=== PATIENT | male | born 1960 | race Caucasian/White ===

== ENCOUNTER 2021-01-25 08:32 | Outpatient (REF) | payer MEDICARE, SELFPAY ==
--- NOTE | ~2021-01-25 | XR_ITS ---
EXAMINATION: KNEE X-RAY CLINICAL INFORMATION: Pain COMPARISON: Previous x-ray most recent November 2018 TECHNIQUE: Standing AP view of both knees and lateral and sunrise view of the left knee FINDINGS: Left knee: Bone alignment is normal. No fracture or dislocation is seen. There is arthritis at the femoral tibial joints with joint space narrowing and small osteophytes. There is no significant joint effusion. Standing AP view of the right knee demonstrates arthritis at the femoral tibial joints. XR/XR knee standing BI IMPRESSION: Bilateral knee arthritis.
--- NOTE | ~2021-01-25 | XR_ITS ---
EXAMINATION: KNEE X-RAY CLINICAL INFORMATION: Pain COMPARISON: Previous x-ray most recent November 2018 TECHNIQUE: Standing AP view of both knees and lateral and sunrise view of the left knee FINDINGS: Left knee: Bone alignment is normal. No fracture or dislocation is seen. There is arthritis at the femoral tibial joints with joint space narrowing and small osteophytes. There is no significant joint effusion. Standing AP view of the right knee demonstrates arthritis at the femoral tibial joints. XR/XR knee LT 2V IMPRESSION: Bilateral knee arthritis.
== END 2021-01-25 08:33 | disposition home or self-care (01) ==
LOC: HO.HOSX 08:32
PROVIDERS: Visit Provider Orthopaedic Surgery
DX: M25.562 Pain in left knee (principal); M25.561 Pain in right knee; M17.0 Bilateral primary osteoarthritis of knee
CPT/HCPCS: 73560; 73565

== ENCOUNTER → 2021-04-11 14:02 | Outpatient (BNVA) | payer BC, SELFPAY | PROVIDERS: PCP Internal Medicine; Visit Provider Internal Medicine Cardiovascular Disease | DX: Z01.810 Encounter for preprocedural cardiovascular examination (principal); I25.10 Atherosclerotic heart disease of native coronary artery without angina pectoris | CPT/HCPCS: 93005 ==

== ENCOUNTER → 2021-05-19 08:30 | Outpatient (REF) | payer BC, SELFPAY ==
--- NOTE | 2021-05-19 08:35 | CA_ITS ---
Transthoracic Echocardiogram Patient (Last, First, Middle): Sean Holder, Gender: Male Date of : 1960 Age: 60 Procedure Date: 05/19/2021 Procedure Type: Transthoracic Echocardiogram Location: OP Height: 187.96 cm Weight: 95.26 kg BSA: 2.22 m2 Heart Rate: bpm BP: 118 / 79 mmHg Classification Officer: IVAN Referring MD: Chris Monahan MD Symptoms: I42.9 - Cardiomyopathy, unspecified Conclusions: - The left ventricular systolic function is low normal. The visually estimated ejection fraction is between 50-55%. 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 - There is a small thrombus in the left ventricle. Findings Procedure Information Contrast agent, definity, is being given per protocol without apparent complications. Left Ventricle Normal left ventricular cavity size. There is normal left ventricular wall thickness. The left ventricular systolic function is low normal. The visually estimated ejection fraction is between 50-55%. There is evidence of regional wall motion abnormalities. Abnormal diastolic function is noted. Spectral Doppler is indicative of an impaired relaxation filling pattern. E/E prime ratio is <8, consistent with normal filling pressures. There is a small thrombus in the left ventricle. 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 Right Ventricle Normal right ventricular cavity size and systolic function. Atria The left atrium is normal in size. Aortic Valve Normal aortic valve structure and function. There is no aortic valve stenosis. There is no aortic valve regurgitation. Mitral Valve Normal mitral valve structure and function. There is no mitral valve regurgitation. There is no mitral valve stenosis. Pulmonic Valve Normal pulmonic valve structure and function. There is no pulmonic valve regurgitation. Tricuspid Valve Normal tricuspid valve structure. There is trace tricuspid valve regurgitation. Normal right atrial pressure. Mild pulmonary hypertension is present. Great Vessels There is mild dilatation of the ascending aorta. The visualized portions of the pulmonary artery and branches are normal. Venous The inferior vena cava is normal in size and collapses greater than 50% with inspiration. Pericardium/Pleural There is no evidence of pericardial effusion. Prior Study Comparison No prior study available for comparison. Measurements 2D Linear Measurements IVSd: 1.07 0.6-0.9/0.6-1.0 cm LVIDd: 5.25 3.9-5.3/4.2-5.9 cm LVIDd Index: 2.36 2.4-3.2/2.2-3.1 cm/m2 LVIDs: 3.42 2.0-3.6 cm LVPWd: 1.07 0.7-1.1 cm Ao Root: 3.50 2.1-3.5 cm LA Diam: 3.30 2.7-3.8/3.0-4.0 cm LAIDs Index: 1.49 1.5-2.3 cm/m2 LV Mass: 269.24 67-162/88-224 g LV Mass Index: 121.28 43-95/49-115 g/m2 LVOT Diam: 2.10 3.0+(-)1.3 cm 2D Systolic Function EF 4C: 67.90 >55% EF 2C: 26.10 >55% EF BiP: 55.40 >55% Mitral Valve MV Pk E: 0.41 MV PK A: 0.64 MV Decel Time: 225.00 E/A: 0.60 E'Lateral: 6.85 E'Medial: 4.90 E/E' Med: 8.40 E/E' Lat: 6.00 PHT: 66.00 MVA PHT: 3.33 Decel [place]: 1.83 Aortic Valve AoV Pk Luis: 1.22 AoV Pk Grad: 6.00 LVOT LVOT Pk Luis: 0.79 LVOT Mn Luis: 0.54 LVOT VTI: 0.17 LVOT Pk Grad: 2.00 LVOT Mn Grad: 1.00 LVOT Diam: 2.10 LVOT Area: 3.46 Diastolic Function MV Pk E: 0.41 MV Pk A: 0.64 E/A: 0.60 E'Medial: 4.90 E/E' Med: 8.40 E' Laterial: 6.85 E/E' Lat: 6.00 Right Ventricle TAPSE (mm): 2.07 Tricuspid Valve TR Pk Luis: 3.28 TR Pk Grad: 43.00 RA Press: 3.00 RVSP: 46.00 Great Vessels Aorta Ao Root-2D: 3.50 2.0-3.7 cm Ao Asc: 3.40 2.1-3.4 cm Updated in Other Vendor System with Status of Final Chris Monahan MD electronically signed on 05/21/2021 10:20:36 PM with status of Final
--- NOTE | 2021-05-19 09:30 | CA_ITS ---
Acquisition Time: 2021-05-19 09:50:07 Total Exercise Time: 00:08:00 Test Indications: Abnormal ECG Medications: ASA ATORVASTATIN LISINOPRIL Protocol: SETH Max HR: 141 BPM 88% of Pred: 160 BPM Max BP: 164/080 mmHG Max Work Load: 10.1 METS Exercise stress test with exercise 8 min of Seth protocol, with mild shortness of breath, no chest discomfort, with isolated PAC, with normotensive response to exercise, without EKG changes meeting criteria for ischemia. Test reviewed with Dr Monahan. Referred By: Chris Monahan Overread By: MINH VALLEJO
== END ==
LOC: HO.CARD 08:30
PROVIDERS: Visit Provider Internal Medicine Cardiovascular Disease
DX: I25.10 Atherosclerotic heart disease of native coronary artery without angina pectoris (principal); I42.9 Cardiomyopathy, unspecified
CPT/HCPCS: 93017; 93306; Q9957

== ENCOUNTER → 2021-06-22 13:35 | Outpatient (BNVA) | payer BC, SELFPAY | PROVIDERS: PCP Internal Medicine; Referring Provider Internal Medicine; Visit Provider Nurse Practitioner Family ==

== ENCOUNTER → 2021-09-28 14:55 | Outpatient (REF) | payer BC, SELFPAY ==
--- NOTE | 2021-09-28 14:58 | CA_ITS ---
Transthoracic Echocardiogram Patient (Last, First, Middle): Sean Holder, Gender: Male Date of : 1960 Age: 61 Procedure Date: 09/28/2021 Procedure Type: Transthoracic Echocardiogram Location: OP Height: 187.96 cm Weight: 88.45 kg BSA: 2.15 m2 Heart Rate: bpm BP: 120 / 80 mmHg Cro: GENE Dove MD: Chey Jones ENGINEERING TECHNOLOGIST-C Loader Engineer: Efrain Lee MD Symptoms: I51.3 - Intracardiac thrombosis, not elsewhere classified Study Quality: Fair/Contrast ECG Rhythm: Sinus Conclusions: - Apical thrombus present with overall normal LV systolic function Findings Left Ventricle The visually estimated ejection fraction is between 60-65%. There is a moderate immobile apical thrombus in the left ventricle. Wall Motion Rest Echo Findings The basal inferior segment is hypokinetic. The apex segment is dyskinetic. All other scored wall segments showed normal motion. Measurements 2D Systolic Function EF 4C: 65.40 >55% EF 2C: 64.40 >55% EF BiP: 64.20 >55% Updated in Other Vendor System with Status of Final Efrain Lee MD electronically signed on 09/29/2021 4:37:45 PM with status of Final
== END ==
LOC: HO.CARD 14:55
PROVIDERS: PCP Internal Medicine; Visit Provider Nurse Practitioner Family
DX: I25.10 Atherosclerotic heart disease of native coronary artery without angina pectoris (principal)
CPT/HCPCS: 93308; Q9957

== ENCOUNTER → 2021-10-03 13:30 | Outpatient (BNVA) | payer BC, SELFPAY | PROVIDERS: PCP Internal Medicine; Referring Provider Internal Medicine; Visit Provider Internal Medicine Cardiovascular Disease ==

== ENCOUNTER → 2022-01-25 12:43 | Outpatient (BNVA) | payer BC, SELFPAY | PROVIDERS: PCP Internal Medicine; Referring Provider Internal Medicine; Visit Provider Internal Medicine Cardiovascular Disease | DX: I46.9 Cardiac arrest, cause unspecified (principal); I65.21 Occlusion and stenosis of right carotid artery; I66.12 Occlusion and stenosis of left anterior cerebral artery; I51.3 Intracardiac thrombosis, not elsewhere classified; I10 Essential (primary) hypertension; I25.10 Atherosclerotic heart disease of native coronary artery without angina pectoris; E78.00 Pure hypercholesterolemia, unspecified; M17.0 Bilateral primary osteoarthritis of knee; F17.210 Nicotine dependence, cigarettes, uncomplicated; Z98.890 Other specified postprocedural states; Z95.5 Presence of coronary angioplasty implant and graft; Z79.01 Long term (current) use of anticoagulants | CPT/HCPCS: 93005 ==

== ENCOUNTER → 2022-06-27 09:41 | Outpatient (REF) | payer BC, SELFPAY ==
--- NOTE | 2022-06-27 09:44 | CA_ITS ---
Transthoracic Echocardiogram Patient (Last, First, Middle): Sean Holder, Gender: Male Date of : 1960 Age: 62 Procedure Date: 06/27/2022 Procedure Type: Transthoracic Echocardiogram Location: OP Height: 187.96 cm Weight: 88.45 kg BSA: 2.15 m2 Heart Rate: bpm BP: 117 / 56 mmHg Education Nurse: EDER Referring MD: Chey Jones LABORER ELECTROPLATING-Char Drum Maker: Efrain Lee MD Symptoms: I51.3 - Intracardiac thrombosis, not elsewhere classified Study Quality: Fair ECG Rhythm: Sinus Conclusions: - Low normal LV systolic function with apical aneurysm with presence of thrombus Findings Left Ventricle Normal left ventricular cavity size. There is normal left ventricular wall thickness. The left ventricular systolic function is low normal. The visually estimated ejection fraction is between 50-55%. Spectral Doppler is indicative of an impaired relaxation filling pattern. There is a small immobile apical thrombus in the left ventricle. The thrombus appears irregular in shape. 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 All other scored wall segments showed normal motion. Prior Study Comparison No significant change compared to prior study dated: 09/28/2021. Measurements 2D Linear Measurements IVSd: 1.33 0.6-0.9/0.6-1.0 cm LVIDd: 3.97 3.9-5.3/4.2-5.9 cm LVIDd Index: 1.85 2.4-3.2/2.2-3.1 cm/m2 LVIDs: 2.95 2.0-3.6 cm LVPWd: 1.29 0.7-1.1 cm LV Mass: 232.57 67-162/88-224 g LV Mass Index: 108.17 43-95/49-115 g/m2 Mitral Valve MV Pk E: 0.45 MV PK A: 0.64 MV Decel Time: 125.00 E/A: 0.70 E'Lateral: 5.55 E'Medial: 4.24 E/E' Med: 10.50 E/E' Lat: 8.00 PHT: 37.00 MVA PHT: 5.95 Decel Orange: 3.56 Diastolic Function MV Pk E: 0.45 MV Pk A: 0.64 E/A: 0.70 E'Medial: 4.24 E/E' Med: 10.50 E' Laterial: 5.55 E/E' Lat: 8.00 Updated in Other Vendor System with Status of Final Efrain Lee MD electronically signed on 06/27/2022 1:34:53 PM with status of Final
== END ==
LOC: HO.CARD 09:41
PROVIDERS: PCP Internal Medicine; Visit Provider Nurse Practitioner Family
DX: I51.3 Intracardiac thrombosis, not elsewhere classified (principal); I25.10 Atherosclerotic heart disease of native coronary artery without angina pectoris
CPT/HCPCS: 93308; Q9957

== ENCOUNTER → 2022-09-27 11:03 | Outpatient (BNVA) | payer BC, SELFPAY | PROVIDERS: PCP Internal Medicine; Visit Provider Internal Medicine Cardiovascular Disease | DX: I51.3 Intracardiac thrombosis, not elsewhere classified (principal); I25.10 Atherosclerotic heart disease of native coronary artery without angina pectoris | CPT/HCPCS: 93005 ==

== ENCOUNTER → 2023-04-04 11:08 | Outpatient (BNVA) | payer BC, SELFPAY | PROVIDERS: Visit Provider Internal Medicine Cardiovascular Disease ==

== ENCOUNTER 2024-01-16 12:43 | Outpatient (AMB) | payer BC, SELFPAY ==
[2024-01-16 12:46] VITALS: BP 140/70; PULSE 76; BMI 26.3
--- NOTE | 2024-01-16 12:46 | A.OFFVIS_ITS ---
Intake Vital Signs 01/16/24 12:46 Height 6 ft 2 in Weight 204 lb 9.423 oz BMI 26.3 BP 140/70 H Blood Pressure Location Lt brachial Position Sitting Pulse 76 Intake Visit Reasons: 6+ mth fu 9pt requested) Intake Note: pt its here f/up/ pt state that he its doing fine. Wedding Cake Designer Required: No Accompanied by: Self / Same As Patient Allergies No Known Allergies Allergy (Verified 04/04/23 11:12) Medication List - Last Reconciled 01/16/24 by Chris Monahan MD aspirin (Adult Aspirin Regimen) 81 mg PO DAILY atorvastatin 40 mg PO DAILY lisinopril 10 mg PO DAILY warfarin 5 mg PO DAILY HPI HPI Comments History of Present Illness Details Pleasant 63-year-old gentleman here for f/u. He was previously seeing Dr. Corbett. It appears he had cardiac arrest and underwent cardiac catheterization in 2007. He was noticed to have occluded RCA as well as severe left anterior descending artery stenosis which was treated with bare metal stent. His ejection fraction was 25% but as per reports from [facility] (he was also seeing Dr Hodgson) his ejection fraction improved. He has not seen any physician for many years. He has bilateral knee arthritis with left more than right knee pain. He is planning to undergo left knee arthroplasty. He is active smoker. He underwent echocardiography which showed dyskinetic apex with LV thrombus. He was started on Eliquis but could not afford it and eventually was changed to Coumadin. He had repeat echocardiography in September 2021 which is showing normal ejection fraction but continues to show apical thrombus. He had repeat echocardiogram after that and still apical thrombus was present. He underwent left hand Dupuytren contracture surgery. He is back for follow-up. He has no symptoms other than fatigue. He continues to smoke half pack per day. He is denying chest discomfort shortness of breath. He is saying he did not have any symptoms before he had cardiac arrest in 2007. I have reviewed his angiogram from 2007. He had STONE DRESSER of the right coronary artery and had left to right collaterals. Circumflex did not have any significant disease. There was prox to mid LAD plaque rupture with heavy thrombus. Difficult to say based on the angiography whether there was an apical cut off present or not. He has LV-gram clearly showed hold LAD territory down with apical akinesis. 01/16/24: He returns for follow-up. He c ontinues to smoke half a pack per day. Denying any chest discomfort. Denying any shortness of breath. He is on Coumadin for LV thrombus. [facility] Medical History (Updated 01/16/24 @ 13:33 by Chris Monahan MD) LV (left ventricular) mural thrombus CAD (coronary artery disease) High cholesterol Hypertension Surgical History History of back surgery History of heart artery stent History of cardiac cath Family History Mother No problems noted. Father Dementia Social History Alcohol intake: current Alcohol intake frequency: a few times a week Alcohol type: beer Patient Tobacco Use Status: Current everyday Tobacco user Cigarette Packs Per Day: 10 Cigarettes Per Day: 0.5 Years Smoked: 40 +/- Current occupational status: retired and disabled Current occupation: right handed Review of Systems Const Denies chills, Denies fatigue, Denies fever(s), Denies frequent falls, Denies weakness, Denies weight gain and Denies weight loss ENT Denies dizziness Card Denies chest pain, Denies leg edema, Denies lightheadedness, Denies palpitations, Denies dyspnea and Denies dyspnea on exertion Resp Denies cough, Denies dyspnea and Denies dyspnea on exertion GI Denies hematochezia Musc Denies abnormal gait, Denies muscle weakness, Denies numbness, Denies radiating pain into limb and Denies tingling Neuro Denies abnormal gait, Denies dizziness, Denies frequent falls, Denies numbness, Denies tingling and Denies weakness Endo Denies fatigue and Denies palpitations Physical Exam Vital Signs: Last Vital Signs Pulse 76 01/16/24 12:46 BP 140/70 H 01/16/24 12:46 BMI result Body Mass Index 26.3 GENERAL APPEARANCE: in no acute distress, pleasant. NECK: no carotid bruit, no jugular venous distention. SKIN: no suspicious lesions, warm and dry. HEART: no murmurs, regular rate and rhythm. LUNGS: clear to auscultation bilaterally. Decreased breath sounds over the lung browne. ABDOMEN: soft, nontender. EXTREMITIES: no edema. Dupuytren contracture right hand. Left hand post surgery and well healed. PERIPHERAL PULSES: equal. NEUROLOGIC: No gross deficits, AAO X 3 Office Procedures EKG Details: Sinus rhythm 76 beats per minute, left axis deviation, right bundle-branch block, anterolateral infarct, inferior infarct, QTC 468 milliseconds. [id number], Complete Assessment & Plan Assessment & Plan (1) CAD (coronary artery disease): Code(s): I25.10 - Atherosclerotic heart disease of [place] coronary artery without angina pectoris (2) LV (left ventricular) mural thrombus: Code(s): I51.3 - Intracardiac thrombosis, not elsewhere classified (3) Hypertension: Code(s): I10 - Essential (primary) hypertension Plan 63-year-old gentleman who is here for follow-up. He has known history of coronary disease with cardiac arrest in 2008 when LAD plaque rupture was noted and treated with drug-eluting stent. He had a RCA STONE DRESSER at that time with [id number] collaterals. His apex was down on ECHO and subsequently that he started seeing us in 2020. He had ECHO which showed apical aneurysm with thrombus. He was started on anticoagulation. He has been on Coumadin and baby aspirin since then. Repeat echocardiography has shown a small apical thrombus. Decision was made to leave him on long-term Coumadin and it is unclear whether Coumadin can be stopped safely in this gentleman or not. He continues to smoke. We had discussion about smoking cessation again. Blood pressure is elevated them increasing the lisinopril to 20 mg once a day. I have offered him an appointment to come back in few months but he wishes to see us 6 months. He said he will go to stop and shop and check his blood pressure and will keep a log every month. I have told him that if his blood pressure continues to be 140s to 150s he should call us. Thank you for allowing me to participate in the care of your patient. Please feel free to contact me if you have any questions. Medications: New lisinopril 20 mg PO DAILY 90 tabs 3RF Coding Level of Care Code Est Pt Level 4 (79024) Diagnoses CAD (coronary artery disease) I25.10 LV (left ventricular) mural thrombus I51.3 Hypertension I10 CPT Codes EKG - CPT: 02253-[id number], Complete ([id number])
== END 2024-01-16 13:13 | disposition home or self-care (01) ==
PROVIDERS: PCP Internal Medicine; Visit Provider Internal Medicine Cardiovascular Disease
DX: I25.10 Atherosclerotic heart disease of native coronary artery without angina pectoris (principal); I51.3 Intracardiac thrombosis, not elsewhere classified; I10 Essential (primary) hypertension
CPT/HCPCS: 93010; 99214

== ENCOUNTER → 2024-01-16 12:43 | Outpatient (BNVA) | payer BC, SELFPAY | PROVIDERS: PCP Internal Medicine; Visit Provider Internal Medicine Cardiovascular Disease | DX: I25.10 Atherosclerotic heart disease of native coronary artery without angina pectoris (principal); I51.3 Intracardiac thrombosis, not elsewhere classified; I10 Essential (primary) hypertension; Z79.01 Long term (current) use of anticoagulants | CPT/HCPCS: 93005 ==

== ENCOUNTER 2024-11-10 09:55 | Outpatient (AMB) | payer BC, SELFPAY ==
[2024-11-10 09:57] VITALS: BP 120/80; PULSE 75; BMI 25.9
--- NOTE | 2024-11-10 09:57 | A.OFFVIS_ITS ---
Vital Signs 11/10/24 09:57 Height 6 ft 2 in Weight 201 lb 15.095 oz BMI 25.9 BP 120/80 Blood Pressure Location Lt brachial Position Sitting Pulse 75 Pulse Source Monitor Intake Visit Reasons: 6 mthf/up (rs) Intake Note: 6mth f/up Pairer Inspector Required: No Accompanied by: Self / Same As Patient Allergies No Known Allergies Allergy (Verified 04/04/23 11:12) Medication List - Last Reconciled 11/10/24 by Chris Monahan MD aspirin (Adult Aspirin Regimen) 81 mg PO DAILY atorvastatin 40 mg PO DAILY lisinopril 20 mg PO DAILY warfarin 5 mg PO DAILY HPI Comments Details: Pleasant 64-year-old gentleman here for f/u. He was previously seeing Dr. Corbett. It appears he had cardiac arrest and underwent cardiac catheterization in 2007. He was noticed to have occluded RCA as well as severe left anterior descending artery stenosis which was treated with bare metal stent. His ejection fraction was 25% but as per reports from [facility] (he was also seeing Dr Hodgson) his ejection fraction improved. He has not seen any physician for many years. He has bilateral knee arthritis with left more than right knee pain. He is planning to undergo left knee arthroplasty. He is active smoker. He underwent echocardiography which showed dyskinetic apex with LV thrombus. He was started on Eliquis but could not afford it and eventually was changed to Coumadin. He had repeat echocardiography in September 2021 which is showing normal ejection fraction but continues to show apical thrombus. He had repeat echocardiogram after that and still apical thrombus was present. He underwent left hand Dupuytren contracture surgery. He has no symptoms other than fatigue. He continues to smoke half pack per day. He is denying chest discomfort shortness of breath. He is saying he did not have any symptoms before he had cardiac arrest in 2007. I have reviewed his angiogram from 2007. He had CHEMICAL BLENDER of the right coronary artery and had left to right collaterals. Circumflex did not have any significant disease. There was prox to mid LAD plaque rupture with heavy thrombus. Difficult to say based on the angiography whether there was an apical cut off present or not. He has LV- gram clearly showed whole LAD territory down with apical akinesis. 01/16/24: He returns for follow-up. He continues to smoke half a pack per day. Denying any chest discomfort. Denying any shortness of breath. He is on Coumadin for LV thrombus. 11/10/2024: He is here for follow-up. He continues to smoke. Echocardiography previously has shown apical thrombus. EKGs showing bifascicular block with changes consistent with anterolateral infarct. Denying significant symptoms but never had symptoms even before cardiac arrest. [facility] Medical History (Updated 01/16/24 @ 13:33 by Chris Monahan MD) LV (left ventricular) mural thrombus CAD (coronary artery disease) High cholesterol Hypertension Surgical History History of back surgery History of heart artery stent History of cardiac cath Family History Mother No problems noted. Father Dementia Social History Alcohol intake: current Alcohol intake frequency: a few times a week Alcohol type: beer Patient Tobacco Use Status: Current everyday Tobacco user Cigarette Packs Per Day: 10 Cigarettes Per Day: 0.5 Years Smoked: 40 +/- Current occupational status: retired and disabled Current occupation: right handed Review of Systems Const Denies chills, Denies fatigue, Denies fever(s), Denies frequent falls, Denies weakness, Denies weight gain and Denies weight loss ENT Denies dizziness Card Denies chest pain, Denies leg edema, Denies lightheadedness, Denies palpitations, Denies dyspnea and Denies dyspnea on exertion Resp Denies cough, Denies dyspnea and Denies dyspnea on exertion GI Denies hematochezia Musc Denies abnormal gait, Denies muscle weakness, Denies numbness, Denies radiating pain into limb and Denies tingling Neuro Denies abnormal gait, Denies dizziness, Denies frequent falls, Denies numbness, Denies tingling and Denies weakness Endo Denies fatigue and Denies palpitations Physical Exam Vital Signs: Last Vital Signs Pulse 75 11/10/24 09:57 BP 120/80 11/10/24 09:57 BMI result Body Mass Index 25.9 GENERAL APPEARANCE: in no acute distress, pleasant. NECK: no carotid bruit, no jugular venous distention. SKIN: no suspicious lesions, warm and dry. HEART: no murmurs, regular rate and rhythm. LUNGS: clear to auscultation bilaterally. Decreased breath sounds over the lung browne. ABDOMEN: soft, nontender. EXTREMITIES: no edema. Dupuytren contracture right hand. Left hand post surgery and well healed. PERIPHERAL PULSES: equal. NEUROLOGIC: No gross deficits, AAO X 3 Office Procedures EKG Details: Sinus rhythm 75 beats per minute left anterior fascicular block, right bundle- branch, QRS duration 156 milliseconds anterolateral infarct, QTC 473 milliseconds. [id number], Complete Assessment & Plan Assessment & Plan (1) Hypertension: Code(s): I10 - Essential (primary) hypertension Category: Medical (2) LV (left ventricular) mural thrombus: Code(s): I51.3 - Intracardiac thrombosis, not elsewhere classified Category: Medical (3) CAD (coronary artery disease): Code(s): I25.10 - Atherosclerotic heart disease of [place] coronary artery without angina pectoris Category: Medical Plan Pleasant 64 year gentleman who is here for follow-up. He had cardiac arrest in 2007 with LAD plaque rupture. He was treated with bare metal stent at that time. He also had RCA CHEMICAL BLENDER with [id number] collaterals. He has apical dyskinesis on echo with thrombus. He has been on Coumadin chronically. He continues to be a heavy smoker. He denies symptoms on follow-up other than fatigue. My concern is that he may have progressive underlying coronary disease due to his smoking and had a bare metal stent almost 17 years ago. I have discussed with him in detail that and anatomic assessment of his coronary arteries should be done and options are coronary CTA versus diagnostic angiogram. Coronary CTA maybe limited in assessing the InStent segment and if there are areas of calcification then it may not be able to assess the degree of stenosis accurately. After discussion we have decided to do a diagnostic angiogram. We will arrange that for him. He will hold Coumadin and I do not plan to bridge him given small thrombus in the apex. We obviously will not cross the aortic valve. Thank you for allowing me to participate in the care of your patient. Please feel free to contact me if you have any questions. Orders: Orders Cardiac Cath LT Diagnostic Today I25.10 - Atherosclerotic heart disease of [place] coronary artery without angina pectoris Coding Level of Care Code Est Pt Level 4 (75950) Diagnoses Hypertension I10 LV (left ventricular) mural thrombus I51.3 CAD (coronary artery disease) I25.10 CPT Codes EKG - CPT: 59454-[id number], Complete ([id number])
--- OUTSIDE RECORDS SUMMARY | 2024-11-10 14:27 | XMS_ITS | Clinical Summary ---
Author Organization [facility] [address] [place] [address] [place] [phone] Phone Care Team Providers Care Production Sound Mixer Name Role Phone Sumit Carmen MD Primary Care Provider Allergies No known active allergies Medications Medication Sig Dispensed Refills Start Date End Date Status aspirin 81 mg EC tablet Take 1 tablet (81 mg total) by mouth 1 (one) time each day. Active atorvastatin (LIPITOR) 20 mg tablet Take 1 tablet (20 mg total) by mouth 1 (one) time each day. 06/03/2024 Active lisinopriL (PRINIVIL,ZESTRIL) 10 mg tablet Take 1 tablet (10 mg total) by mouth 1 (one) time each day. 02/01/2023 Active warfarin (COUMADIN) 5 mg tablet Take 5 mg by mouth daily. 05/27/2021 Active Active Problems Problem Noted Date Diagnosed Date Left ventricular thrombus 08/20/2024 Left inguinal hernia 02/01/2023 Mural thrombus of left ventricle 05/27/2021 Prediabetes 03/11/2019 DJD (degenerative joint disease) of knee 016 Overview (10/14/2024): Follows with DR. Sally ELLIS, reportedly end stage, had failed local injection, may need to consider TKR. Dupuytren's disease 08/27/2014 Right pulmonary infiltrate on CXR 09/20/2012 Tobacco use disorder 06/06/2012 Coronary artery disease invo lving [place] coronary artery of [place] heart without angina pectoris 04/26/2009 Overview (10/14/2024): Admitted with cardiac arrest on catheterization had 99% LAD lesion as well as total occlusion of right coronary artery with lbly-xr-pvvfe collaterals. Left circumflex diffusely diseased, ejection fraction 25%. 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 09/17/2024 9:30 AM EST Anticoagulation - Warfarin Visit [facility] - [address] [phone] Left ventricular thrombus (Primary Dx) 09/10/2024 8:50 AM EST Anticoagulation - Warfarin Visit Coumadin [address] [phone] Left ventricular thrombus (Primary Dx) 09/03/2024 9:50 AM EST Anticoagulation - Warfarin Visit Coumadin [address] [phone] Left ventricular thrombus (Primary Dx) 08/20/2024 8:20 AM EST Anticoagulation - Warfarin Visit Coumadin [address] [phone] Left ventricular thrombus (Primary Dx); Anticoagulation management encounter from Last 3 Months Immunizations Name Administration Dates Next Due H1N1 Inj Preservative Free 11/18/2009 Influenza Quadravalent, MDCK , 0.5ml, preservative free (Flucelvax) 6mo and older 08/02/2020 Influenza trivalent, with preservative (Fluzone; Afluria) 6mo and older 08/27/2014,08/20/2013,08/17/2011,2009 Tdap Tetanus diptheria acell ular pertussis (Boostrix; Adacel) 7yo and older 06/03/2024,06/06/2012 Surgical History Surgery Date Site/Laterality Comments COLONOSCOPY 10/26/11 PROCEDURE: HISTORICAL COLONOSCOPY; COMMENT: tics; repeat in ten yrs KNEE SURGERY Right PROCEDURE: HISTORICAL KNEE SURGERY Medical History Medical History Date Comments Lumbago 11/09/2005 DX:Lumbago Right pulmonary infiltrate on CXR 09/20/2012 DX:Right pulmonary infiltrate on CXR HTN (hypertension) DX:HTN (hyper tension) Hyperlipidemia DX:Hyperlipidemi a DJD (degenerative joint disease) of knee 04/06/20 16 DX:DJD (degenerative joint disease) of knee; COMMENT: Follows with [facility], DR. Zavala, reportedly end stage, had failed local injection, may need to consider TKR. Family History Medical History Relation Name Comments Dementia Father passsed away fr om dementia at age 82 Diabetes Father at old age Other: taking some meds, not sure Mother currently age 86 Relation Name Status Comments Brother 1 Alive Brother 2 Alive Brother 3 Alive Father dementia Mother Alive Sister Alive Social History Tobacco Use Types Packs/Day Years Used Date Smoking Tobacco: Every Day Cigarettes Smokeless Tobacco: Never Alcohol Use Standard Drinks/Week Comments Yes 1.7 (1 standard drink = 0.6 oz p ure alcohol) Sex and Gender Information Value Date Recorded Sex Assigned at Not on file Gender Identity Not on file Sexual Orientation Not on file Job Start Date Occupation Industry Not on file Not on file Not on file Obstetrics History Last Filed Vital Signs Vital Sign Reading Time Taken Comments Blood Pressure 110/74 06/03/2024 3:48 PM EDT Pulse 74 06/03/2024 3:48 PM EDT Temperature - - Respiratory Rate - - Oxygen Saturation - - Inhaled Oxygen Concentration - - Weight 91.6 kg (202 lb) 06/03/2024 3:48 PM EDT Height 182.9 cm (6') 06/03/2024 3:48 PM EDT Body Mass Index 27.4 06/03/2024 3:48 PM EDT Plan of Treatment Upcoming Encounters Date Type Department Care Team (Latest Contact Info) Description 11/20/2024 9:00 AM EST Anticoagulation - Warfarin Visit [facility] - [place] [address] [place] [address] Health Maintenance Due Date Last Done Comments Pneumococcal Vaccine: Pediatrics (0 to 5 Years) and At-Risk Patients (6 to 64 Years) (1 of 2 - PCV) 1966 Hepatitis A Vaccines (1 of 2 - Risk 2-dose series) 1979 Zoster Vaccines (1 of 2) 2010 Depression Screening 09/23/2022 HIV Screening 09/23/2022 Lung Cancer Screening (Low Dose CT) 09/23/2022 Medicare Annual Wellness Visit 09/23/2022 Social Influencers of Health Screening 09/23/2022 COVID-19 Vaccine ( season) 2024 Influenza Vaccine (#1) 2024 , 08/02/2020, 08/27/2014, Additional history exists Hypertension/CHF/CAD Annual BMP Blood Test 04/24/2025 04/24/2024, 04/24/2024 Colorectal Cancer Screening: Colonoscopy 03/06/2028 03/06/2023 Cholesterol Screening (Lipid Panel) 04/24/2029 04/24/2024, 04/24/2024 DTaP,Tdap,and Td Vaccines (3 - Td or Tdap) 06/03/2034 06/03/2024, 06/06/2012 RSV Immunization Patients 60+ Years Old (1 - 1-dose 75+ series) 2035 Hepatitis C Screening Completed 11/08/2016 HIB Vaccines Aged Out No longer eligi ble based on patient's age to complete this topic HPV Vaccines Aged Out No longer eligi ble based on patient's age to complete this topic Hepatitis B Vaccines Aged Out No long er eligible based on patient's age to complete this topic IPV Vaccines Aged Out No longer eligi ble based on patient's age to complete this topic MMR Vaccines Aged Out No longer eligi ble based on patient's age to complete this topic Meningococcal ACWY Vaccine Aged Out N o longer eligible based on patient's age to complete this topic RSV Immunization Patients Under 20 months Aged Out No longer eligible based on patient's age to complete this topic Varicella Vaccines Aged Out No longer eligible based on patient's age to complete this topic Procedures Procedure Name Priority Date/Time Associated Diagnosis Comments POC PROTIME INR BLOOD Routine 10/23/2024 Left ventricular thrombus 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 POC PROTIME INR BLOOD Routine 10/01/2024 Left ventricular thrombus 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 POC PROTIME INR BLOOD Routine 09/17/2024 Left ventricular thrombus POC PROTIME INR BLOOD Routine 09/10/2024 Left ventricular thrombus POC PROTIME INR BLOOD Routine 09/03/2024 Left ventricular thrombus POC PROTIME INR BLOOD Routine 08/20/2024 Left ventricular thrombus Anticoagulation management encounter ANNUAL BMP BLOOD TEST Routine 04/24/2024 LIPID PANEL Routine 04/24/2024 COLONOSCOPY Routine 03/06/2023 HEPATITIS C SCREENING Routine 11/08/2016 from Last 3 Months or Most Recently Relevant to Health Maintenance Results * POC Protime INR Blood (10/23/2024) Only the most recent of6 resultswithin the time period is included. Lot Number INR POC 2.3 Prothrombin Time POC Exp Date Blood 10/23/2024 Historical Provider POINT OF CARE FENRIE T ENTER/EDIT ORDERABLES * Annual BMP Blood Test (04/24/2024) Annual BMP Blood Test abstracted Historical Provider [facility] E * Lipid panel (04/24/2024) LDL/HDL Ratio 2 0 - 4 Triglycerides 53 0 - 150 mg/dL Cholesterol 110 0 - 200 mg/dL HDL 52 40 mg/dL LDL Cholesterol 48 0 - 100 mg/dL Blood Venous blood specimen / Unknown Historical Provider LAB BLOOD ORDERAB LES * Colonoscopy (03/06/2023) Colonoscopy no interpretation , abstracted Anatomical Region Laterality Modality Other Historical Provider MD EMILY MOSCOSO E * Hepatitis C Screening (11/08/2016) Pathologist [facility] Hepatitis C Screening abstracted Historical Provider MD EMILY MOSCOSO E from Last 3 Months or Most Recently Relevant to Health Maintenance Care Teams Production Sound Mixer Relationship Specialty Start Date End Date Sumit Carmen MD [address] [place] [address] PCP - General Internal Medicine 05/31/22
--- OUTSIDE RECORDS SUMMARY | 2024-11-10 14:27 | XMS_ITS | Encounter Summary ---
Author Organization [facility] Address [address] [place] [address] Care Team Providers Care Supervisor Framing Mill Name Role Phone Sumit Carmen MD Primary Care Provider [phone] Encounter Details Date Type Department Care Team (Latest Contact Info) Description 10/01/2024 9:50 AM EST Anticoagulation - Warfarin Visit [facility]in Clinic - [address] [phone] Left ventricular thrombus (Primary Dx); prison (current) use of anticoagulants Social History Tobacco Use Types Packs/Day Years [...] file Not on file Not on file documented as of this encounter Plan of Treatment Upcoming Encounters Date Type Department Care Team (Latest Contact Info) Description 11/20/2024 9:00 AM EST Anticoagulation - Warfarin [facility] [address] [phone] documented as of this encounter Procedures Procedure Name Priority Date/Time Associated Diagnosis Comments POC PROTIME INR BLOOD Routine 10/01/2024 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 ventricular thrombus 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 documented in this encounter Results * POC Protime INR Blood (10/01/2024) Lot Number INR POC 3.2 Prothrombin Time POC Exp Date Blood 10/01/2024 Historical Provider POINT OF CARE FERNIE T ENTER/EDIT ORDERABLES documented in this encounter Visit Diagnoses Diagnosis Left ventricular thrombus- Primary Acute myocardial infarction, unspecified site, episode of care unspecified prison (current) use of anticoagulants Long-term (current) use of anticoagulants documented in this encounter Care Teams Supervisor Framing Mill Relationship Specialty Start Date End Date Sumit Carmen MD [address] [place] [address] PCP - General Internal Medicine 05/31/22 documented as of this encounter
--- OUTSIDE RECORDS SUMMARY | 2024-11-10 14:27 | XMS_ITS | Encounter Summary ---
Author Organization [facility] Address [address] [place] [address] Care Team Providers Care Telecommunications Operator Name Role Phone Sumit Carmen MD Primary Care Provider [phone] Encounter Details Date Type Department Care Team (Latest Contact Info) Description 10/23/2024 8:40 AM EST Anticoagulation - Warfarin Visit [facility] Clinic - [address] [phone] Left ventricular thrombus (Primary Dx); [facility] (current) use of anticoagulants Social History Tobacco [...] EST Anticoagulation - Warfarin Visit [facility] [address] [phone] documented as of this encounter Procedures Procedure Name Priority Date/Time Associated Diagnosis Comments POC PROTIME INR BLOOD Routine 10/23/2024 Left ventricular thrombus 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 documented in this encounter Results * POC Protime INR Blood (10/23/2024) Lot Number INR POC 2.3 Prothrombin Time POC Exp Date Blood 10/23/2024 Historical Provider POINT OF CARE FERNIE T ENTER/EDIT ORDERABLES documented in this encounter Visit Diagnoses Diagnosis Left ventricular thrombus- Primary Acute myocardial infarction, unspecified site, episode of care unspecified [facility] (current) use of anticoagulants Long-term (current) use of anticoagulants documented in this encounter Care Teams Telecommunications Operator Relationship Specialty Start Date End Date Sumit Carmen MD [address] [place] [address] PCP - General Internal Medicine 05/31/22 documented as of this encounter
== END 2024-11-10 10:36 | disposition home or self-care (01) ==
PROVIDERS: PCP Internal Medicine; Visit Provider Internal Medicine Cardiovascular Disease
DX: I10 Essential (primary) hypertension (principal); I51.3 Intracardiac thrombosis, not elsewhere classified; I25.10 Atherosclerotic heart disease of native coronary artery without angina pectoris
CPT/HCPCS: 93010; 99214

== ENCOUNTER → 2024-11-10 09:55 | Outpatient (BNVA) | payer BC, SELFPAY | PROVIDERS: PCP Internal Medicine; Visit Provider Internal Medicine Cardiovascular Disease | DX: I10 Essential (primary) hypertension (principal); I51.3 Intracardiac thrombosis, not elsewhere classified; I25.10 Atherosclerotic heart disease of native coronary artery without angina pectoris; F17.210 Nicotine dependence, cigarettes, uncomplicated; Z79.01 Long term (current) use of anticoagulants | CPT/HCPCS: 93005 ==

== ENCOUNTER 2024-12-09 15:22 | Outpatient (REF) | payer BC, MEDICARE, SELFPAY ==
[2024-12-09 16:18] LABS: Basophils Percent Auto 0.7 % (0-2); Eosinophils Absolute Auto 0.2 X10*3/uL (0.0-0.4); Eosinophils Percent Auto 3.5 % (0-4); Hematocrit 43.9 % (42.0-52.0); Hemoglobin 14.6 g/dl (14.0-18.0); Imm Gran Abs Auto 0.01 X10*3/uL (0.00-0.03); Imm Gran Pct Auto 0.2 % (0.0-0.4); Lymphocytes Absolute Auto 1.7 X10*3/uL (1.2-4.9); Lymphocytes Percent Auto 29.4 % (20-40); MANUAL DIFF FLAG NO; Mean Corpuscular HGB Conc 33.3 g/dl (31.0-36.0); Mean Corpuscular Hemoglobin 32.2 pg (27.0-33.0); Mean Corpuscular Volume 96.9 fL (80.0-98.0); Mean Platelet Volume 9.9 fL (9.4-12.4); Monocytes Absolute Auto 0.6 X10*3/uL (0.1-1.2); Monocytes Percent Auto 10.3 % (2-11); Neutrophils Absolute Auto 3.2 x10*3/uL (2.0-8.3); Neutrophils Percent Auto 55.9 % (45-73); Platelet Count 340 X10*3/uL (160-400); Red Blood Count 4.53 X10*6/uL (4.60-5.80); Red Cell Distribution Width 13.6 % (11.0-16.0); White Blood Count 5.7 X10*3/uL (4.8-10.8)
[2024-12-09 16:27] LABS: INTERNATIONAL NORM RATIO 1.6 (0.9-1.1); Prothrombin Time 18.8 SEC (10.9-12.4)
[2024-12-09 17:01] LABS: Anion Gap 11 (12-20); Blood Urea Nitrogen 15 mg/dL (9-16); Calcium 9.4 mg/dL (8.4-10.2); Carbon Dioxide 31 mmol/L (22-29); Chloride 106 mmol/L (96-108); Estimated Glomerular Filt Rate > 60; Glucose Random 143 mg/dL (60-115); Sodium 144 mmol/L (135-145)
--- OUTSIDE RECORDS SUMMARY | 2024-12-09 19:09 | XMS_ITS | Encounter Summary ---
Author Organization [facility] Address [address] [place] [address] Care Team Providers Care Him Clerk Name Role Phone Sumit Carmen MD Primary Care Provider [phone]- [phone] Encounter Details Date Type Department Care Team (Latest Contact Info) Description 09/10/2024 8:50 AM EST Anticoagulation - Warfarin Visit [facility] [address] [phone] Left ventricular thrombus (Primary Dx) Social History Tobacco Use Types Packs/Day Years Used Date Smoking Tobacco: Every Day Cigarettes Smokeless Tobacco: Never Alcohol Use Standard Drinks/Week Comments Yes 1.7 (1 standard drink = 0.6 oz p ure alcohol) Sex and Gender Information Value Date Recorded Sex Assigned at Not on file Legal Sex Male 3:20 AM EST Gender Identity Not on file Sexual Orientation Not on file documented as of this encounter Plan of Treatment Upcoming Encounters Date Type Department Care Team (Latest Contact Info) Description 12/23/2024 8:30 AM EDT Anticoagulation - Warfarin Visit Coumadin [address] [phone] documented as of this encounter Procedures Procedure Name Priority Date/Time Associated Diagnosis Comments POC PROTIME INR BLOOD Routine 09/10/2024 Left ventricular thrombus documented in this encounter Results * POC Protime INR Blood (09/10/2024) Lot Number INR POC 2.2 Prothrombin Time POC Exp Date Blood 09/10/2024 Sean VILLEDA POINT OF CARE TEST ENTER/ EDIT ORDERABLES Edited Result - Final documented in this encounter Visit Diagnoses Diagnosis Left ventricular thrombus- Primary Acute myocardial infarction, unspecified site, episode of care unspecified documented in this encounter Care Teams Him Clerk Relationship Specialty Start Date End Date Sumit Camren MD [address] [place] [address] PCP - General Internal Medicine 05/31/22 documented as of this encounter
--- OUTSIDE RECORDS SUMMARY | 2024-12-09 19:09 | XMS_ITS | Encounter Summary ---
Author Organization [facility] Address [address] [place] [address] Care Team Providers Care Government Relations Director Name Role Phone Sumit Carmen MD Primary Care Provider [phone]- [phone] Encounter Details Date Type Department Care Team (Latest Contact Info) Description 11/25/2024 8:30 AM EST Anticoagulation - Warfarin Visit [facility] [address] [phone] Left ventricular thrombus (Primary Dx) Social History [...] AM EDT Anticoagulation - Warfarin Visit Coumadin [address] [phone] documented as of this encounter Procedures Procedure Name Priority Date/Time Associated Diagnosis Comments POC PROTIME INR BLOOD Routine 11/25/2024 Left ventricular thrombus documented in this encounter Results * POC Protime INR Blood (11/25/2024) Lot Number INR POC 3.2 Prothrombin Time POC Exp Date Blood 11/25/2024 Sumit Carmen MD POINT OF CARE TEST ENTER/ED IT ORDERABLES Edited Result - Final documented in this encounter Visit Diagnoses Diagnosis Left ventricular thrombus- Primary Acute myocardial infarction, unspecified site, episode of care unspecified documented in this encounter Care Teams Government Relations Director Relationship Specialty Start Date End Date Sumit Carmen MD [address] [place] [address] PCP - General Internal Medicine 05/31/22 documented as of this encounter
--- OUTSIDE RECORDS SUMMARY | 2024-12-09 19:09 | XMS_ITS | Clinical Summary ---
Author Organization [facility] [address] [place] [address] [place] [phone] Phone Care Team Providers Care Patient Centered Care Specialist Name Role Phone Sumit Carmen MD Primary Care Provider Allergies No known active allergies Medications aspirin 81 mg EC tablet Take 1 tablet (81 mg total) by mouth 1 (one) time each day. Active atorvastatin (LIPITOR) 20 mg tablet Take 1 tablet (20 mg total) by mouth 1 (one) time each day. 06/03/2024 Active lisinopriL (PRINIVIL,ZESTRI L) 10 mg tablet Take 1 tablet (10 [...] of knee 016 Overview (10/14/2024): Follows with [facility], DR. Zavala, reportedly end stage, had failed local injection, may need to consider TKR. Dupuytren's disease 08/27/2014 Right pulmonary infiltrate on CXR 09/20/2012 Tobacco use disorder 06/06/2012 Coronary artery disease invo lving [place] coronary artery of [place] heart without angina pectoris 04/26/2009 Overview (10/14/2024): Admitted with cardiac arrest on catheterization had 99% LAD lesion as well as total occlusion of right coronary artery with jcpi-[id number]-wqclx collaterals. Left circumflex diffusely diseased, ejection fraction 25%. LAD lesion stented with bare metal stent Hyperlipidemia 04/26/2009 Lumbago 11/09/2005 Encounters Date Type Department Care Team Description 11/25/2024 8:30 AM EST Anticoagulation - Warfarin Visit [facility] [address] [phone] Left ventricular thrombus (Primary Dx) 10/23/2024 8:40 AM EST Anticoagulation - Warfarin Visit Coumadin [address] [phone] Left ventricular thrombus (Primary Dx); halfway (current) use of anticoagulants 10/01/2024 9:50 AM EST Anticoagulation - Warfarin Visit Coumadin [address] [phone] Left ventricular thrombus (Primary Dx); halfway (current) use of anticoagulants 09/17/2024 9:30 AM EST [facility] [address] [phone] Left ventricular thrombus (Primary Dx) 09/10/2024 8:50 AM EST [facility] [address] [phone] Left ventricular thrombus (Primary Dx) from Last 3 Months Immunizations Name Administration [...] on file Sexual Orientation Not on file Obstetrics History Last Filed [...] AM EDT Anticoagulation - Warfarin Visit Coumadin [address] [phone] Health Maintenance Due Date Last Done Comments Hepatitis A Vaccines (1 of 2 - Risk 2-dose series) 1979 Pneumococcal Vaccine: 50+ Years (1 of 2 - PCV) 1979 Pneumococcal Vaccine: Pediatrics (0 to 5 Years) and At-Risk Patients (6 to 64 Years) (1 of 2 - PCV) 1979 Zoster Vaccines (1 of 2) 2010 [...] patient's age to complete this topic Meningococcal B Vacine Aged Out No lo nger eligible based on patient's age to complete this topic RSV Immunization Patients Under 20 months Aged Out No longer eligible based on patient's age to complete this topic Varicella Vaccines Aged Out No longer eligible based on patient's age to complete this topic Procedures Procedure Name Priority Date/Time Associated Diagnosis Comments POC PROTIME INR BLOOD Routine 11/25/2024 Left ventricular thrombus POC PROTIME INR BLOOD Routine 10/23/2024 Left ventricular thrombus 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 Lot Number INR POC 3.2 Prothrombin Time POC Exp Date Blood 11/25/2024 Sumit Carmen MD POINT OF CARE TEST ENTER/ED IT ORDERABLES Edited Result - Final * Annual BMP Blood Test (04/24/2024) Pathologist [facility] Annual BMP Blood Test abstracted Historical Provider HEALTH MAINTENANCE Final Result * Lipid panel (04/24/2024) Pathologist [facility] LDL/HDL Ratio 2 0 - 4 Triglycerides 53 0 - 150 mg/dL Cholesterol 110 0 - 200 mg/dL HDL 52 >=40 mg/dL LDL Cholesterol 48 0 - 100 mg/dL Blood Venous blood specimen / Unknown Historical Provider LAB BLOOD ORDERABLES Chelsie l Result * Colonoscopy (03/06/2023) Colonoscopy no interpretation , abstracted Anatomical Region Laterality Modality Other Historical Provider HEALTH MAINTENANCE Final Result * Hepatitis C Screening (11/08/2016) Hepatitis C Screening abstracted Historical Provider HEALTH MAINTENANCE Final Result from Last 3 Months or Most Recently Relevant to Health Maintenance Insurance MEDICARE [facility] Care Teams Patient Centered Care Specialist Relationship Specialty Start Date End Date Sumit Carmen MD [address] [place] [address] PCP - General Internal Medicine 05/31/22
--- OUTSIDE RECORDS SUMMARY | 2024-12-09 19:09 | XMS_ITS | Encounter Summary ---
Author Organization [facility] Address [address] [place] [address] Care Team Providers Care Flame Cutter Name Role Phone Sumit Carmen MD Primary Care Provider [phone]- [phone] Encounter Details Date Type Department Care Team (Latest Contact Info) Description 09/17/2024 9:30 AM EST Anticoagulation - [facility]farin [facility] [address] [phone] Left ventricular thrombus (Primary Dx) Social History [...] AM EDT Anticoagulation - Warfarin Visit Coumadin [address] [phone] documented as of this encounter Procedures Procedure Name Priority Date/Time Associated Diagnosis Comments POC PROTIME INR BLOOD Routine 09/17/2024 Left ventricular thrombus documented in this encounter Results * POC Protime INR Blood (09/17/2024) Lot Number INR POC 2.5 Prothrombin Time POC Exp Date Blood 09/17/2024 us Armond Lee MD POINT OF CARE TEST ENTER/EDIT ORDERABLES Edited Result - Final documented in this encounter Visit Diagnoses Diagnosis Left ventricular thrombus- Primary Acute myocardial infarction, unspecified site, episode of care unspecified documented in this encounter Care Teams Flame Cutter Relationship Specialty Start Date End Date Sumit Carmen MD [address] [place] [address] PCP - General Internal Medicine 05/31/22 documented as of this encounter
--- OUTSIDE RECORDS SUMMARY | 2024-12-09 19:10 | XMS_ITS | Encounter Summary ---
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 Social History Tobacco [...] AM EDT Anticoagulation - Warfarin [facility] [address] [phone] documented as of this encounter Procedures Procedure Name Priority Date/Time Associated Diagnosis Comments POC PROTIME INR BLOOD Routine 10/23/2024 Left ventricular thrombus senior care (current) use of anticoagulants documented in this encounter Results * POC Protime INR Blood (10/23/2024) Lot Number INR POC 2.3 Prothrombin Time POC Exp Date Blood 10/23/2024 us Shane [place] MD POINT OF CARE TEST ENTER/EDIT O RDERABLES Edited Result - Final documented in this encounter Visit Diagnoses Diagnosis Left ventricular thrombus- Primary Acute myocardial infarction, unspecified site, episode of care unspecified 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
--- OUTSIDE RECORDS SUMMARY | 2024-12-09 19:10 | XMS_ITS | Encounter Summary ---
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 Social History Tobacco [...] EDT Anticoagulation - Warfarin Visit [facility] [address] [phone] documented as of this encounter Procedures Procedure Name Priority Date/Time Associated Diagnosis Comments POC PROTIME INR BLOOD Routine 10/01/2024 Left ventricular thrombus skilled nursing (current) use of anticoagulants documented in this encounter Results * POC Protime INR Blood (10/01/2024) Lot Number INR POC 3.2 Prothrombin Time POC Exp Date Blood 10/01/2024 Princess Fowler MD POINT OF CARE TEST ENTER/EDIT OR DERABLES Edited Result - Final documented in this encounter Visit Diagnoses Diagnosis Left ventricular thrombus- Primary Acute myocardial infarction, unspecified site, episode of care unspecified skilled nursing (current) use of anticoagulants Long-term (current) use of anticoagulants documented in this encounter Care Teams Steam Shovel Operator Relationship Specialty Start Date End Date Sumit Carmen MD [address] [place] [address] PCP - General Internal Medicine 05/31/22 documented as of this encounter
== END 2024-12-09 15:23 | disposition home or self-care (01) ==
LOC: HO.LAB 15:22
PROVIDERS: Absent Provider Internal Medicine Cardiovascular Disease; PCP Internal Medicine; Visit Provider Internal Medicine
DX: I25.10 Atherosclerotic heart disease of native coronary artery without angina pectoris (principal)
CPT/HCPCS: 36415; 80048; 85025; 85610

== ENCOUNTER → 2024-12-16 23:59 | Outpatient (BNV) | payer BC, MEDICARE, SELFPAY | PROVIDERS: PCP Internal Medicine; Visit Provider Internal Medicine Cardiovascular Disease | DX: I25.82 Chronic total occlusion of coronary artery (principal) | CPT/HCPCS: 93454; 99152 ==

== ENCOUNTER 2024-12-30 09:46 | Outpatient (AMB) | payer BC, SELFPAY ==
[2024-12-30 09:48] VITALS: BP 120/80; PULSE 80; BMI 26.5
--- NOTE | 2024-12-30 09:48 | A.OFFVIS_ITS ---
Vital Signs 12/30/24 09:48 Height 6 ft 2 in Weight 206 lb 5.643 oz BMI 26.5 BP 120/80 Blood Pressure Location Lt brachial Position Sitting Pulse 80 Pulse Source Pulse Oximeter Intake Visit Reasons: 2 wk follow up cardiac cath Engraver Set Up Operator Required: No Allergies No Known Allergies Allergy (Verified 12/30/24 09:50) Medication List - Last Reconciled 12/30/24 by Chey Jones NP-C aspirin (Adult Aspirin Regimen) 81 mg PO DAILY atorvastatin 40 mg PO DAILY lisinopril 20 mg PO DAILY warfarin 5 mg PO DAILY HPI HPI 2 wk follow up cardiac cath: Details: Sean is a 64-year-old male with past medical history of smoking, hypertension, hyperlipidemia, cardiac arrest 2007 with catheterization showing occluded RCA with collaterals, severe LAD stenosis and bare metal stent placed, echocardiograms showing LV thrombus and on Coumadin for anticoagulation. 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 Today he reports he has been doing well since his catheterization procedure. He has no concerning symptoms. He denies chest discomfort at rest or with activity. He has no shortness of breath, PND, orthopnea or edema. He has no heart palpitations, lightheadedness, presyncope, syncope. He reports good activity tolerance but admits to being mostly sedentary since he is retired. He says he will start doing more now that the weather is improving. He has no bleeding issues reported. He goes to [place] for his INRs monitoring. Compliant with meds. Continues to smoke 1/2 pack cigarettes per day and says he is going to work on quitting. [facility] Medical History (Updated 12/30/24 @ 11:04 by Chey Jones NP-C) LV (left ventricular) mural thrombus CAD (coronary artery disease) High cholesterol Hypertension Surgical History (Updated 12/30/24 @ 11:05 by CHANDNI JuarezC) History of back surgery History of heart artery stent History of cardiac cath Family History Mother No problems noted. Father Dementia Social History Alcohol intake: current Alcohol intake frequency: a few times a week Alcohol type: beer Patient Tobacco Use Status: Current everyday Tobacco user Cigarette Packs Per Day: 10 Cigarettes Per Day: 0.5 Years Smoked: 40 +/- Current occupational status: retired and disabled Current occupation: right handed Review of Systems Const All systems reviewed & are unremarkable except as noted in HPI and below ENT Denies dizziness Card Denies chest pain, Denies chest pain at rest, Denies chest pain with activity, Denies rapid heart rate, Denies pedal edema, Denies edema, Denies leg edema, Denies lightheadedness, Denies palpitations, Denies dyspnea, Denies dyspnea on exertion and Denies orthopnea Resp Denies cough, Denies dyspnea and Denies dyspnea on exertion GI Denies hematochezia and Denies change in stool character Musc Denies abnormal gait, Denies limited range of motion, Denies muscle cramps, Denies muscle weakness, Denies numbness, Denies radiating pain into limb, Denies stiffness and Denies tingling Neuro Denies abnormal gait, Denies dizziness, Denies numbness and Denies tingling Endo Denies palpitations Physical Exam Vital Signs: Last Vital Signs Pulse 80 12/30/24 09:48 BP 120/80 12/30/24 09:48 BMI result Body Mass Index 26.5 Const General: cooperative, healthy appearing, comfortable and no acute distress Orientation/consciousness: patient oriented x3 Neck Neck: Yes normal visual inspection Resp Effort & Inspection: normal respiratory effort Auscultation: clear to auscultation bilaterally, no crackles, no rales, no rhonchi and no wheezes Cardio Rate: regular rate Rhythm: regular rhythm Heart sounds: S1 normal heart sound present, S2 normal heart sound present, no murmurs and no rubs Neuro General: patient oriented x3 Extrem Other: Right radial catheterization site well healed, easily palpable right radial pulse and right hand assessment normal General: Yes normal to inspection, No no pedal edema and No calf tenderness Psych Appearance: grossly normal Mental Status: mental status grossly normal Speech and movement: Normal speech and movement present Assessment & Plan Assessment & Plan (1) CAD (coronary artery disease): Code(s): I25.10 - Atherosclerotic heart disease of [place] coronary artery without angina pectoris Category: Medical Plan: History of CAD with cardiac arrest 2007. Catheterization at that time showed occluded RCA and severe LAD stenosis and bare metal stent placed. Initial EF 25% which did improve. Last echo 06/27/2022 with EF 50-55%, small immobile ap ical thrombus, apical aneurysm. He has done well with no anginal symptoms. 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 Test results reviewed with him in detail. Continue with risk factor modification. Continue aspirin, atorvastatin with ideal LDL goal less than 70. Continue lisinopril for good blood pressure control. He is on Coumadin due to his apical thrombus. Signs and symptoms of angina discussed. Cardiology follow-up 1 year, sooner if needed. (2) History of cardiac cath: Comment: 12/16/2024, lad stent with mild in stent restenosis, 40% ostial OM1 stenosis, distal RCA 100% CUSTOMER SALES SERVICE MANAGER with [id number] collaterals. Code(s): Z98.890 - Other specified postprocedural states Category: Surgical Plan: Right radial catheterization site healing well (3) LV (left ventricular) mural thrombus: Code(s): I51.3 - Intracardiac thrombosis, not elsewhere classified Category: Medical Plan: Last echo as above with small immobile apical thrombus. He has been maintained on Coumadin with INR goal 2-3. Will update echo before next visit. (4) Hypertension: Code(s): I10 - Essential (primary) hypertension Category: Medical Plan: Well controlled at this time. [place] goal less than 130/80. Continue lisinopril (5) High cholesterol: Code(s): E78.00 - Pure hypercholesterolemia, unspecified Category: Medical Plan: [place] LDL goal less than 70. Labs followed by PCP. Will forward this note to PCP. Continue atorvastatin. Plan Time spent on chart review, documentation, interview and assessment Orders: Orders CA echo transthoracic complete 11 Months I25.10 - Atherosclerotic heart disease of [place] coronary artery without angina pectoris, I51.3 - Intracardiac thromb osis, not elsewhere classified Coding Level of Care Code Est Pt Level 4 (14650) Complex EM visit Add On G2211 Diagnoses CAD (coronary artery disease) I25.10 History of cardiac cath Z98.890 LV (left ventricular) mural thrombus I51.3 Hypertension I10 High cholesterol E78.00 Time Spent (min) 30
--- OUTSIDE RECORDS SUMMARY | 2024-12-30 10:51 | XMS_ITS | Clinical Summary ---
Author Organization [facility] [address] [place] [address] [place] [phone] Phone Care Team Providers Care Cafeteria Director Name Role Phone Sumit Carmen MD Primary Care Provider [phone] Allergies No known active allergies Medications aspirin [...] disorder 06/06/2012 Coronary artery disease invo lving [place] coronary artery of [place] heart without angina pectoris 04/26/2009 Overview (10/14/2024): Admitted with cardiac arrest on catheterization had 99% LAD lesion as well as total occlusion of right coronary artery with [id number] collaterals. Left circumflex diffusely diseased, ejection fraction 25%. 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 Zavala, reportedly end stage, had failed [...] Department Care Team (Latest Contact Info) Description 01/06/2025 8:40 AM EDT Anticoagulation - Warfarin Visit Coumadin [address] [phone] Health Maintenance Due Date Last Done Comments [...] Influencers of Health Screening 09/23/2022 COVID-19 Vaccine (1 - 2023- season) 2024 Influenza Vaccine (#1) 2024 , [...] Diagnosis Comments POC PROTIME INR BLOOD Routine 12/23/2024 Left ventricular thrombus POC PROTIME INR BLOOD Routine 11/25/2024 Left ventricular thrombus POC PROTIME INR BLOOD Routine 10/23/2024 Left ventricular thrombus detention (current) use of anticoagulants POC PROTIME INR BLOOD Routine 10/01/2024 Left ventricular thrombus meterman (current) use of anticoagulants ANNUAL BMP BLOOD TEST Routine 04/24/2024 LIPID PANEL Routine 04/24/2024 COLONOSCOPY Routine 03/06/2023 HEPATITIS C SCREENING Routine 11/08/2016 from Last 3 Months or Most Recently Relevant to Health Maintenance Results * POC Protime INR Blood (12/23/2024) Only the most recent of4 resultswithin the time period is included. [facility] Lot Number INR POC 1.6 Prothrombin Time POC Exp Date Blood 12/23/2024 Sumit Carmen MD POINT OF CARE TEST ENTER/ED IT ORDERABLES Edited Result - Final * Annual BMP Blood Test (04/24/2024) [facility] Annual BMP Blood Test abstracted Historical Provider HEALTH MAINTENANCE Final Result * Lipid panel (04/24/2024) [facility] LDL/HDL Ratio 2 0 - 4 Triglycerides 53 0 - 150 mg/dL Cholesterol 110 0 - 200 mg/dL HDL 52 >=40 mg/dL LDL Cholesterol 48 0 - 100 mg/dL Blood Venous blood specimen / Unknown Historical Provider LAB BLOOD ORDERABLES Chelsie l Result * Colonoscopy (03/06/2023) [facility] Colonoscopy no interpretation , abstracted Anatomical Region Laterality Modality Other Historical Provider HEALTH MAINTENANCE Final Result * Hepatitis C Screening (11/08/2016) [facility] Hepatitis C Screening abstracted us Historical Provider HEALTH MAINTENANCE Final Result from Last 3 Months or Most Recently Relevant to Health Maintenance Insurance MEDICARE [facility] Care Teams Cafeteria Director Relationship Specialty Start Date End Date Sumit Carmen MD [address] [place] [address] PCP - General Internal Medicine 05/31/22
--- OUTSIDE RECORDS SUMMARY | 2024-12-30 10:51 | XMS_ITS | Encounter Summary ---
Author Organization [facility] Address [address] [place] [address] Care Team Providers Care Software Technician Name Role Phone Sumit Carmen MD Primary Care Provider [phone] Encounter Details Date Type Department Care Team (Latest Contact Info) Description 12/23/2024 8:30 AM EDT Anticoagulation - Warfarin Visit [facility] [address] [phone] Left ventricular thrombus (Primary Dx) Social History [...] AM EDT Anticoagulation - Warfarin Visit Coumadin [address] [phone] documented as of this encounter Procedures Procedure Name Priority Date/Time Associated Diagnosis Comments POC PROTIME INR BLOOD Routine 12/23/2024 Left ventricular thrombus documented in this encounter Results * POC Protime INR Blood (12/23/2024) Lot Number INR POC 1.6 Prothrombin Time POC Exp Date Blood 12/23/2024 us Sumit Carmen MD POINT OF CARE TEST ENTER/ED IT ORDERABLES Edited Result - Final documented in this encounter Visit Diagnoses Diagnosis Left ventricular thrombus- Primary Acute myocardial infarction, unspecified site, episode of care unspecified documented in this encounter Care Teams Software Technician Relationship Specialty Start Date End Date Sumit Carmen MD [address] [place] [address] PCP - General Internal Medicine 05/31/22 documented as of this encounter
== END 2024-12-30 10:13 | disposition home or self-care (01) ==
LOC: HO.HCS 09:47
PROVIDERS: PCP Internal Medicine; Visit Provider Nurse Practitioner Family
DX: I25.10 Atherosclerotic heart disease of native coronary artery without angina pectoris (principal); Z98.890 Other specified postprocedural states; I51.3 Intracardiac thrombosis, not elsewhere classified; I10 Essential (primary) hypertension; E78.00 Pure hypercholesterolemia, unspecified
CPT/HCPCS: 99214

== ENCOUNTER → 2024-12-30 09:46 | Outpatient (BNVA) | payer BC, SELFPAY | PROVIDERS: PCP Internal Medicine; Visit Provider Nurse Practitioner Family ==